=== PATIENT | female | born 2000 | race Caucasian/White ===

== ENCOUNTER 2022-05-14 02:49 | Emergency (ER) | payer OTHER, SELFPAY ==
--- NOTE | 2022-05-14 03:02 | DI.CT.S_ITS ---
PROCEDURE: CT HEAD/BRAIN WO CON INDICATIONS: fall 2 days ago vomting headache TECHNIQUE: Noncontrast 4.5 mm thick angled axial sections acquired from the foramen magnum to the vertex, with coronal and sagittal reformats. For radiation dose reduction, the following was used: automated exposure control, adjustment of mA and/or kV according to patient size. COMPARISON: None. FINDINGS: Image quality: Excellent. CSF spaces: Basal cisterns are patent. No extra-axial fluid collections. Ventricles are normal in size and shape. Brain: No midline shift. No intracranial masses or hemorrhage. Romero-white matter interface is normal. Skull and face: Calvarium and visualized facial bones are intact, without suspicious lesions. Right parietal scalp contusion and subscalp hematoma. Sinuses: There is mucosal thickening in right sphenoid sinus. Mastoid are clear. IMPRESSION: 1. No acute intracranial abnormalities. 2. Right sphenoid sinus disease. No significant discrepancy with the operations supervisor 2nd shift radiology preliminary report. Dictated by: Moise Julian M.D. on 05/14/2022 at 7:48 Approved by: Moise Julian M.D. on 05/14/2022 at 7:49
--- NOTE | 2022-05-14 03:02 | DI.CT.S_ITS ---
PROCEDURE: CT CERVICAL SPINE WO CON INDICATIONS: fall TECHNIQUE: Noncontrast 3 mm thick sections acquired from the skull base to the T4 level. Sagittal and coronal reformats were then constructed. For radiation dose reduction, the following was used: automated exposure control, adjustment of mA and/or kV according to patient size. COMPARISON: None. FINDINGS: Image quality: Excellent. Bones: No fractures or dislocations. Visualized superior ribs are intact. Soft tissues: Prevertebral soft tissues are normal in thickness. No paravertebral hematomas. No apical pneumothoraces. There is residual thymic tissue. IMPRESSION: No cervical spine fractures. No significant discrepancy with the solar photovoltaic installer radiology preliminary report. Dictated by: Moise Julian M.D. on 05/14/2022 at 7:52 Approved by: Moise Julian M.D. on 05/14/2022 at 7:53
[2022-05-14 03:03] VITALS: BP 173/88; PULSE 84; RESP 16; TEMP 36.6; O2SAT 100; BMI 30.7
--- NOTE | 2022-05-14 03:04 | ED.FALL ---
HPI - Fall General Chief Complaint: Head Injury Stated Complaint: possible concussion from a fall t-2 days Time Seen by Provider: 05/14/22 03:02 History of Present Illness HPI Narrative: Patient is a 21-year-old healthy female who presents after falling 2 days ago. She reports being more intoxicated than she should-2 days ago she fell down about 8 stairs. She then getting into or out of a car when she fell again that same day. She went to work the following day but felt extremely nauseous and vomited. Once she told work what was going on it was recommended she come to the ER for further evaluation. She says that she has some numbness and tingling in her hands and occasionally toes. She has headache. She has a contusion over on the right side. No lacerations. She says everything hurts and is bruised. Review of Systems Review of Systems Narrative: GENERAL: Denies chills, fatigue, malaise, fever, sweats, travel HEENT: Denies sinus pain, ear pain, sore throat, difficulty swallowing, neck pain RESPIRATORY: Denies dyspnea, cough, wheezing, hemoptysis, sputum. CARDIOVASCULAR: Denies chest pain, palpitations, orthopnea, edema GASTROINTESTINAL:+ vomiting, see HPI denies abdominal pain or diarrhea : Denies dysuria, frequency, incontinence, hematuria, urinary retention, flank pain. MUSCULOSKELETAL: See HPI SKIN: No rash, no erythema, no pruritus NEUROLOGIC: Denies weakness, dizziness, headache, numbness, change in speech, confusion PSYCHIATRIC: No concerning psychosocial issues. 12 point review of systems is negative except for those stated above and HPI Patient History Social History Smoking Status: Never smoker Exam Initial Vital Signs Initial Vital Signs: Vital Signs Temperature 98 F 05/14/22 03:03 Pulse Rate 84 05/14/22 03:03 Respiratory Rate 16 05/14/22 03:03 Blood Pressure 173/88 H 05/14/22 03:03 Pulse Oximetry 100 05/14/22 03:03 Oxygen Delivery Method 05/14/22 03:03 GENERAL: Alert 21-year-old female appears to not feel well HEENT: Head atraumatic,EOMI, pupils reactive, face symmetric, moist mucous membranes NECK: stiff neck no vertebral tenderness no step-off CARDIOVASCULAR: Regular rate and rhythm without murmurs, rubs or gallops. RESPIRATORY: Breath sounds equal bilaterally, no wheezes rales or rhonchi. ABDOMEN: Soft, nontender. Normoactive bowel sounds all 4 quadrants. No guarding or rebound. : No CVA tenderness EXTREMITIES: Normal range of motion, no clubbing or edema. Neurovascularly intact NEUROLOGICAL: Alert and oriented x4.Normal gait and speech. Conference Concierge strength equal bilaterally SKIN: Warm, dry, no laceration, no petechiae, no rashes or lesions. Course Orders Ordered: ED Orders 05/14/22 03:02 CT cervical spine wo con Stat CT head/brain wo con Stat Vital Signs Vital signs: Vital Signs - 8 hr 05/14/22 03:03 05/14/22 04:10 Temperature 98 F Pulse Rate 84 94 H Respiratory Rate 16 16 Blood Pressure 173/88 H 145/75 H Pulse Oximetry 100 99 Oxygen Delivery Method Room Air MDM - Fall Lab Data Labs: Point of Care Testing Test Results Negative Imaging Data CT scan - head: Radiologist's Impression: Right posterior parietal cephalohematoma without collateral fracture or acute intracranial abnormality. Sphenoid sinus disease. CT - cervical spine: Radiologist's Impression: No acute traumatic injury is identified. Increased soft tissue prominence within the anterior mediastinum likely residual thymic tissue MDM Narrative Medical decision making narrative: The patient had too hard falls 2 days ago. She is nauseous she still has headache. Likely concussion syndrome. Head CT is negative. She has not had any vomiting in the ED. She is not on any day for pain at this time. She really has no neuro follow focal logic deficits. Strength is equal and she is ambulatory in the ED. pre discussed with her to avoid high-risk activities. She may be sensitive to screen time. She needs to monitor closely. Discharge Plan Departure Patient Disposition: Home Clinical Impression: Closed head injury, Concussion without loss of consciousness Instructions: Concussion Activity Restrictions/Additional Instructions: *You have been diagnosed with concussion syndrome *What to do: At this time increase activity as tolerated. Avoid high-risk activity for recurrence of concussion. Expect to be nauseated and have pain. He may be sensitive to light as well. *Continue to take medications as directed Tylenol 1000 mg every 6 hours if needed for [id number] pain Motrin 600 mg 6 hours if needed for [id number] pain *Follow up with your primary care provider in 2-3 days or call [phone] *Return to ER if you should have increasing pain, persistent vomiting weakness or any new, worsening or concerning symptoms Referrals: [facility] [Provider Group] Stand Alone Forms: Work Release Note Visit Report Forms: Patient Portal/API
[2022-05-14 04:10] VITALS: BP 145/75; PULSE 94; RESP 16; O2SAT 99
== END 2022-05-14 05:05 | disposition home or self-care (01) ==
PROVIDERS: Emergency Provider Emergency Medicine
DX: S06.0X0A Concussion without loss of consciousness, initial encounter (principal); W19.XXXA Unspecified fall, initial encounter
CPT/HCPCS: 70450; 72125; 81025; 99283